=== PATIENT | male | born 1945 | race Caucasian/White ===

== ENCOUNTER 2017-04-28 09:15 | Outpatient (CLI) | payer MEDICARE, OTHER ==
[2017-04-28 11:15] LABS: Anion Gap 12 mmol/L (10-20); BUN (Urea Nitrogen) 16 mg/dL (8.4-25.7); Calc. Creatinine Clearance 0 mL/min (70-130); Carbon Dioxide 25 mmol/L (23-31); Chloride 109 mmol/L (98-107); Estimated GFR-MDRD 73
[2017-04-28 11:19] LABS: Hematocrit 45.4 % (42.0-52.0); Mean Platelet Volume 7.1 fL (7.4-10.4); White Blood Cell (WBC) Count 9.1 thou/uL (4.8-10.8)
[2017-04-28 11:21] LABS: PTT 27.4 SEC (22.9-36.1); Prothrombin Time 13.2 SEC (12.0-14.7)
--- NOTE | 2017-04-28 11:36 | RAD ---
ABDOMEN ONE VIEW: History: Stones. Abdomen pain. Comparison: IVP, 03-09-17. FINDINGS: Visualized bowel gas pattern is nonspecific. Phleboliths and other vascular calcifications project ov er the pelvis. Lobular calcifications overlying the left renal shadow are unchanged in appearance and positioning from the prior exam. There are degenerative changes of the lumbar spine. IMPRESSION: Left renal calculi appear stable. POS: [facility]
[2017-04-28 11:47] LABS: Bilirubin Negative (Negative); Blood, Urine Trace (Negative); Glucose, Urine (Dipstick) Negative (Negative); Ketone, Urine Trace mg/dL (Negative); Nitrite Negative (Negative); Protein, Urine (Dipstick) Negative (Neg-Trace)
[2017-04-28 11:49] LABS: Bacteria/HPF Rare-Few HPF (None Seen); Hyaline Casts/LPF 0-3 HYALINE CAST LPF (0-3 Hyaline); Squamous Epithelial None Seen HPF (0-3); WBC/HPF 21-50 HPF (0-3)
--- NOTE | 2017-04-28 14:22 | EKG ---
Test Reason : Blood Pressure : / mmHG Vent. Rate : 063 BPM Atrial Rate : 063 BPM P-R Int : 170 ms QRS Dur : 090 ms QT Int : 384 ms P-R-T Axes : 044 071 050 degrees QTc Int : 392 ms Normal sinus rhythm with sinus arrhythmia Cannot rule out Anterior infarct , age undetermined (PARWP) Abnormal ECG No previous ECGs available Confirmed by DR. Shalini LOPEZ ([id number]) on 04/28/2017 2:21:29 PM Referred By: BLANCA Confirmed By:DR. Shalini LOPEZ
== END 2017-04-28 09:16 | disposition home or self-care (01) ==
LOC: LABBT 09:15
PROVIDERS: ATTEND Urology
DX: Z01.818 Encounter for other preprocedural examination (principal); N20.0 Calculus of kidney
CPT/HCPCS: 74000; 80048; 81001; 85027; 85610; 85730; 87077; 87086; 93005; 93010

== ENCOUNTER 2017-05-25 05:47 | Day surgery (SDC) | payer MEDICARE, OTHER ==
[2017-04-28 09:45] VITALS: BMI 31.9
[2017-05-25] MEDS ORDERED: Iothalamate Meglumine 60% 50 ML VIAL FS ONE (06:45)
[2017-05-25] MEDS ORDERED: Fentanyl 100 MCG/2 ML VIAL ONE ×2 (06:49→10:20)
[2017-05-25 06:55] LABS: PTT 26.8 SEC (22.9-36.1); Prothrombin Time 13.6 SEC (12.0-14.7)
[2017-05-25 07:01] LABS: Anion Gap 17 mmol/L (10-20); BUN (Urea Nitrogen) 17 mg/dL (8.4-25.7); Calc. Creatinine Clearance 86 mL/min (70-130); Calcium 9.7 mg/dL (7.8-10.44); Carbon Dioxide 18 mmol/L (23-31); Chloride 108 mmol/L (98-107); Estimated GFR-MDRD 71; Glucose 127 mg/dL (83-110); Potassium 4.6 mmol/L (3.5-5.1); Sodium 138 mmol/L (136-145)
[2017-05-25 07:11] LABS: #Basophils 0.1 thou/uL (0.0-0.2); #Eosinphils 0.4 thou/uL (0.0-0.7); #Neutrophils 6.7 thou/uL (1.40-6.50); %Basophils 0.5 % (0.0-1.0); %Eosinophils 3.1 % (0.0-10.0); %Lymphocytes 32.7 % (21.0-51.0); %Monocytes 8.2 % (0.0-10.0); %Neutrophils 55.5 % (42.0-75.0); Hemoglobin 15.3 g/dL (14.0-18.0); Mean Corpuscular HGB CONC 34.9 g/dL (32.0-36.0); Mean Corpuscular Hemoglobin 33.6 pg (27.0-31.0); Mean Corpuscular Volume 96.2 fl (80.0-94.0); Mean Platelet Volume 6.9 fL (7.4-10.4); Platelet Count 127 thou/uL (130-400); RBC Distribution Width 11.8 % (11.5-14.5); Red Blood Cell (RBC) Count 4.55 mill/uL (4.70-6.10); White Blood Cell (WBC) Count 12.1 thou/uL (4.8-10.8)
[2017-05-25] MEDS ORDERED: Levofloxacin 500 mg/D5W 100 ml Premix Bag ONE (07:15)
--- NOTE | 2017-05-25 08:34 | RAD ---
ABDOMEN ONE VIEW: History: Renal stones. Pre op. Comparison: 04-28-17 FINDINGS: Visualized bowel gas pattern is nonspecific. Lobulated calcifications projecting over the left renal shadow are unchanged in appearance from the previous study. Phleboliths project over the pelvis. IMPRESSION: Left renal calculi appear stable. POS: [facility]
--- NOTE | 2017-05-25 09:32 | RAD ---
LEFT RETROGRADE URETEROGRAM INTRAOPERATIVE FLUOROSCOPY: History: Renal stones. FINDINGS/IMPRESSION: Intraoperative fluoroscopy is provided for Dr. Aldrich for retrograde ureterogram. Spot fluorosco pic images show catheterization and opacification of a nondilated left renal collecting system. Filli ng defects correlate with left renal stones. Final image shows the upper portion of a left ureteral s tent. POS: [facility]
[2017-05-25] MEDS ORDERED: Phenazopyridine HCl 97.5 MG TABLET ONE (09:48)
--- NOTE | 2017-05-25 10:53 | OP ---
DATE OF PROCEDURE: 05/25/2017 PREOPERATIVE DIAGNOSES: 1. A 72-year-old male with history of recurrent urolithiasis: Current stone burden in the left upper pole 1.5 cm x 6 mm, 7 x 5 mm left lower pole stone, right mid pole punctate renal calculi. 2. History of right 2.4 cm mildly enhancing renal mass on surveillance, followed by MD Guerar. 3. History of benign prostatic hypertrophy. 4. History of hematuria workup, previous workup at [facility] by Dr. Lewis , negative for bladder pathology. POSTOPERATIVE DIAGNOSES: 1. A 72-year-old male with history of recurrent urolithiasis: Current stone burden in the left upper pole 1.5 cm x 6 mm, 7 x 5 mm left lower pole stone, right mid pole punctate renal calculi. 2. History of right 2.4 cm mildly enhancing renal mass on surveillance, followed by MD Guerra. 3. History of benign prostatic hypertrophy. 4. History of hematuria workup, previous workup at [facility] by Dr. Lewis , negative for bladder pathology. PROCEDURE: Cystoscopy, left retrograde, 6 x 22 double-J ureteral stent placement with distal tail in situ, balloon dilation of the left distal intramural ureter, flexible ureteroscopy, pyeloscopy, laser lithotripsy, basket extraction of stone fragments, retrograde pyelogram. SURGEON: Brenda Aldrich D.O. ANESTHESIA: General. COMPLICATIONS: None apparent. DISPOSITION: To the recovery room in stable condition. SPECIMEN: Stone fragments for chemical analysis. INTRAOPERATIVE FINDINGS: 1. Nonobstructing wide caliber bulbar stricture now warranting treatment. 2. Moderate BPH with no significant intravesical median lobe, high median bar noted. 3. UOs approximately 3-4 mm from the bladder neck. 4. Large left upper pole renal stone. 5. Left lower pole stone moiety, papilla-based, not amendable to treatment at this time. INDICATIONS FOR THE PROCEDURE AND HISTORY: Mr. Ortiz is a 72-year-old male, self-referred for a second opinion, patient previously underwent evaluation by Dr. Lewis at [facility]. CT IVP cystoscopy performed. He was found to have BPH, no bladder lesions were found. He is on surveillance for right renal mass, which the patient prefers to be followed at [place] regarding this and has been for quite some time on surveillance with no surgical intervention, he presented for evaluation of left renal lithiasis. 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 I have informed the patient regarding treatment options of ESWL, ureteroscopy, percutaneous nephrolithotomy. PCNL was deemed somewhat difficult to access given the upper pole infundibular angle , I did not recommend ESWL, as his stone is quite dense large, ureteroscopy and laser lithotripsy was reviewed. Risks and complications of the procedure was reviewed with patient in detail including, but not limited to: Bleeding, pain, infection, injury to adjacent organs, urosepsis, ureteral renal injury, likely secondary procedure given large stone burden. All questions were answered to his satisfaction and he desired to proceed without reservation. DESCRIPTION OF THE PROCEDURE: After an informed consent was signed, the patient was taken to the operating room, placed in a dorsal lithotomy position with the genital area prepped and draped in the usual surgical sterile fashion. A 21-Jamaican cystoscope was utilized for cystoscopy which demonstrated nonobstructing bulbar stricture, now warranting treatment. Prostatic urethra demonstrated bilobar hyperplasia with a high median bar moderately obstructing. Bladder was entered and the UOs were identified in normal orthotopic position approximately 3-4 mm from the bladder neck. There was no evidence of bladder lesion. At this time, an open-ended catheter was utilized and a 0.35 sensor wire was placed into the left upper pole without difficulty. Retrograde pyelogram was initially performed demonstrating no evidence of hydronephrosis or hydroureter. A large stone burden is seen in the left upper pole and a left lower pole consistent with prior CT. At this time, with the wire in situ, using [employer] 4 cm 12-Jamaican balloon dilator, we dilated the intramural ureter. Subsequently, we passed a 10-Jamaican dual-lumen access sheath to the level of the proximal ureter and a second working wire, a 0.35 Super Stiff was placed. The dual-lumen access sheath was then removed and an 11 /13-Jamaican x 46 cm navigator was passed through the working Super Stiff wire to the level of the proximal ureter. The flexible ureteroscope was then advanced over the working wire. The stone was directly visualized which demonstrating a large hard stone burden. The left upper pole stone was fragmented into multiple tiny pieces using 365 micron laser fiber. We tried to basket extract some of these sediments and tiny fragments were sent for chemical analysis. Much of the stone debris was fragmented into dust-like debris, too small to basket extract. At the end of the procedure, were remained were tiny fragments which he would most likely pass as they are dust-like caliber. I then surveyed his left lower pole. There was an acute infundibular angle. This stone is papilla-based, not amendable to treatment at this time. The ureter was then surveyed, which demonstrated no evidence of ureteral mucosa trauma or stone debris. The navigator was then subsequently removed. A 6 x 26 stent was initially placed based on his high; however, this is much to redundant, a 6 x 22 double-J ureteral stent which is appropriate length for this patient. Proper placement was confirmed on fluoroscopy and on direct visualization. Bladder was completely emptied. He will be discharged with Buna 5/325 #50, ciprofloxacin for 7 days, Flomax to continue, Colace, AZO p.r.n. He is to obtain a KUB one hour prior to the appointment, scheduled to see me 06/09/2016 with KUB one hour prior, if no gross evidence of ureteral stone debris, we will perform cysto stent pull under local. LOS
[2017-05-25] MEDS ORDERED: HYDROcodone/Acetaminophen 5/325 mg Tablet ONE (11:14)
== END 2017-05-25 11:43 | disposition home or self-care (01) ==
LOC: SDC 05:47
PROVIDERS: ATTEND Urology
PROC: 0TF78ZZ Fragmentation in Left Ureter, Via Natural or Artificial Opening Endoscopic (ICD-10-PCS; principal; 2017-05-25)
PROC: 0T778DZ Dilation of Left Ureter with Intraluminal Device, Via Natural or Artificial Opening Endoscopic (ICD-10-PCS; 2017-05-25)
DX: N20.0 Calculus of kidney (principal); N40.0 Benign prostatic hyperplasia without lower urinary tract symptoms; I10 Essential (primary) hypertension; E78.00 Pure hypercholesterolemia, unspecified; M06.9 Rheumatoid arthritis, unspecified; E03.9 Hypothyroidism, unspecified; Z87.442 Personal history of urinary calculi; Z98.890 Other specified postprocedural states; Z80.1 Family history of malignant neoplasm of trachea, bronchus and lung; Z79.899 Other long term (current) drug therapy; Z79.82 Long term (current) use of aspirin; Z79.2 Long term (current) use of antibiotics
CPT/HCPCS: 52344; 52356; 74018; 74420; 80048; 82365; 85025; 85610; 85730; 88300; 96374; C1758; C1769; J1956; J3010; J3370; Q9961

== ENCOUNTER 2017-06-09 07:12 | Outpatient (CLI) | payer MEDICARE, OTHER ==
--- NOTE | 2017-06-09 09:08 | RAD ---
AP SUPINE ABDOMINAL RADIOGRAPH: DATE: 06/09/17. HISTORY: Renal stone. COMPARISON: 05/25/17. FINDINGS: The calcification overlying the inferior pole of the left renal shadow is again seen consistent with a renal calculus. Previously noted calculus overlying the superior pole left renal shadow is not vis ualized on this exam which may be related to interval treatment. A double-pigtail left ureteral sten t is now noted in place with the proximal portion overlying the superior pole left renal shadow and t he distal portion overlying the expected location of the urinary bladder. Right renal shadow is hazel sly obscured by bowel gas. No additional suspicious calcifications are seen. Phleboliths overlie th e pelvis. The bowel gas pattern is nonspecific. No other interval change. IMPRESSION: 1. Left nephrolithiasis, but the larger calculus burden overlying the superior pole left kidney is n ot seen which may be related to interval treatment. 2. Left ureteral stent noted in place. POS: [facility]
== END 2017-06-09 07:13 | disposition home or self-care (01) ==
LOC: RAD 07:12
PROVIDERS: ATTEND Urology
DX: N20.0 Calculus of kidney (principal); Z96.0 Presence of urogenital implants
CPT/HCPCS: 74018; 87086

== ENCOUNTER 2017-09-29 12:24 | Outpatient (CLI) | payer MEDICARE, OTHER | END 2017-09-29 12:25 | disposition home or self-care (01) | LOC: BICULT 12:24 | PROVIDERS: ATTEND Urology | DX: N20.0 Calculus of kidney (principal); N28.89 Other specified disorders of kidney and ureter | CPT/HCPCS: 74018; 76770 ==

== ENCOUNTER 2018-05-24 09:05 | Outpatient (CLI) | payer MEDICARE, OTHER ==
[2018-05-24 09:53] LABS: Anion Gap 14 mmol/L (10-20); BUN (Urea Nitrogen) 14 mg/dL (8.4-25.7); Calc. Creatinine Clearance 0 mL/min (70-130); Calcium 9.7 mg/dL (7.8-10.44); Carbon Dioxide 25 mmol/L (23-31); Chloride 107 mmol/L (98-107); Estimated GFR-MDRD Greater than 90; Glucose 120 mg/dL (83-110); Potassium 4.6 mmol/L (3.5-5.1); Sodium 141 mmol/L (136-145)
[2018-05-24 10:06] LABS: Bilirubin Negative (Negative); Blood, Urine Trace (Negative); Clarity CLEAR (Clear); Glucose, Urine (Dipstick) Negative (Negative); Leukocyte Small (Negative); Nitrite Negative (Negative); Protein, Urine (Dipstick) Negative (Neg-Trace); Specific Gravity, Urine 1.021 (1.002-1.036); Urobilinogen 0.2 mg/dL (0.2-1.0); pH, Urine 6.5 (5.0-9.0)
[2018-05-24 10:11] LABS: Bacteria/HPF None Seen HPF (None Seen); Hyaline Casts/LPF 0-3 HYALINE CAST LPF (0-3 Hyaline); Squamous Epithelial 0-3 HPF (0-3)
--- NOTE | 2018-05-24 11:42 | CT ---
CT ABDOMEN AND PELVIS WITHOUT CONTRAST: Date: 05/24/18 PROVIDED CLINICAL HISTORY: Renal calculus. FINDINGS: Comparison made with CT examination dated 05/06/14. The visualized lung bases are free of significant opacity. Multiple cysts are again seen involving the liver. There is a 1.8 cm hypodense structure involving th e posterior aspect of the right kidney with rim calcification that appears slightly larger with respe ct to the prior examination (1.8 cm in greatest transverse dimension on the current study as compared to 1.4 cm on the prior). There is a 6.0 mm nonobstructing inferior pole left renal calculus. There are several punctate nonobs tructing right renal calculi, seen to best advantage on the coronal images. No additional urinary tra ct calculi are evident. There is no evidence for hydronephrosis. Nonspecific bilateral perinephric fa t stranding. Conspicuous diffuse colonic diverticulosis without CT evidence for diverticulitis. Vascular calcifications noted involving the abdominal aorta and its branches. The osseous structures demonstrate no concerning osteoblastic or osteolytic lesions. Degenerative mikal nges are seen involving the spine. Stable small fat-containing paraumbilical hernia. IMPRESSION: 1. Nonobstructing bilateral nephrolithiasis. 2. Incompletely characterized peripherally calcified right renal hypodensity, minimally enlarged wit h respect to the prior study. 3. Other chronic findings as above. POS: [facility]
== END 2018-05-24 09:06 | disposition home or self-care (01) ==
LOC: CT 09:05
PROVIDERS: ATTEND Urology
DX: N20.0 Calculus of kidney (principal); Z87.448 Personal history of other diseases of urinary system; N28.89 Other specified disorders of kidney and ureter; K76.89 Other specified diseases of liver; K57.30 Diverticulosis of large intestine without perforation or abscess without bleeding; M47.9 Spondylosis, unspecified; K42.9 Umbilical hernia without obstruction or gangrene; I70.90 Unspecified atherosclerosis
CPT/HCPCS: 74176; 80048; 81001; 87077; 87086; 87186

== ENCOUNTER 2018-09-13 10:52 | Outpatient (CLI) | payer MEDICARE, OTHER ==
[2018-09-13 12:27] LABS: #Basophils 0.1 thou/uL (0.0-0.2); #Eosinphils 0.4 thou/uL (0.0-0.7); #Lymphocytes 3.8 thou/uL (1.20-3.40); #Monocytes 0.7 thou/uL (0.11-0.59); #Neutrophils 4.4 thou/uL (1.40-6.50); %Basophils 0.9 % (0.0-1.0); %Eosinophils 4.1 % (0.0-10.0); %Lymphocytes 40.8 % (21.0-51.0); %Monocytes 7.4 % (0.0-10.0); %Neutrophils 46.9 % (42.0-75.0); Hemoglobin 14.8 g/dL (14.0-18.0); Mean Corpuscular HGB CONC 34.2 g/dL (32.0-36.0); Mean Corpuscular Volume 96.5 fL (78.0-98.0); Mean Platelet Volume 7.3 fL (7.4-10.4); Platelet Count 127 thou/uL (130-400); RBC Distribution Width 11.9 % (11.5-14.5); Red Blood Cell (RBC) Count 4.48 mill/uL (4.70-6.10); White Blood Cell (WBC) Count 9.4 thou/uL (4.8-10.8)
[2018-09-13 12:48] LABS: Anion Gap 10 mmol/L (10-20); BUN (Urea Nitrogen) 14 mg/dL (8.4-25.7); Calc. Creatinine Clearance 0 mL/min (70-130); Calcium 9.7 mg/dL (7.8-10.44); Carbon Dioxide 28 mmol/L (23-31); Chloride 106 mmol/L (98-107); Estimated GFR-MDRD 84; Glucose 100 mg/dL (83-110); Potassium 4.3 mmol/L (3.5-5.1); Sodium 140 mmol/L (136-145)
== END 2018-09-13 10:53 | disposition home or self-care (01) ==
LOC: LABBT 10:52
PROVIDERS: ATTEND Surgery
DX: Z01.818 Encounter for other preprocedural examination (principal); K42.9 Umbilical hernia without obstruction or gangrene
CPT/HCPCS: 80048; 85025; 93005; 93010

== ENCOUNTER 2018-09-19 06:53 | Day surgery (SDC) | payer MEDICARE, OTHER ==
[2018-09-13 11:02] VITALS: BMI 31.8
[2018-09-19] MEDS ORDERED: Bupivacaine/Epinephrine 0.25% 30 ML VIAL ONE (09:01)
[2018-09-19] MEDS ORDERED: Famotidine/PF 20 mg/2ml Vial ONE (09:05)
[2018-09-19] MEDS ORDERED: Fentanyl 100 MCG/2 ML VIAL ONE (09:05)
--- NOTE | 2018-09-19 13:54 | OP ---
DATE OF PROCEDURE: 09/19/2018 PREOPERATIVE DIAGNOSIS: Umbilical hernia. POSTOPERATIVE DIAGNOSIS: Umbilical hernia. PROCEDURE PERFORMED: Umbilical hernia repair with mesh, Ventralex ST, small, 4 cm. ANESTHESIA: General. ESTIMATED BLOOD LOSS: None. COMPLICATIONS: None. SPECIMEN: None. FINDINGS: Umbilical hernia. DESCRIPTION OF PROCEDURE: The patient was taken to the operating room and laid supine on the operating room table. After general anesthetic was obtained, the abdomen was shaved, prepped, and draped in a sterile fashion. A curved incision was made below the umbilicus. Cautery was dissected down to and score the fascia. The umbilical stalk was amputated exposing the fascial defect. The preperitoneal space was bluntly dissected from the back side of the fascia and the preperitoneal space. The Ventralex ST 4 cm mesh was brought into the sterile field. The underlay was placed in this area. The tails were used to pull it up flat against the posterior abdominal wall. The tails were sewn via U-stitch of permanent braided suture laterally. The tails were cut at the level of the fascia. The fascia was closed loosely over the mesh. The wound was irrigated. Local anesthetic was applied. The umbilical stalk was tacked back down using 3-0 Vicryl. The skin was closed using 3-0 Vicryl, 4-0 Monocryl, and Dermabond. The patient was sent to Recovery in stable condition. All instrument counts, needle counts, and lap counts were correct. Job ID: [id number]
[2018-09-19] MEDS ORDERED: Metoclopramide HCl 10 MG/2 ML VIAL ONE (14:15)
[2018-09-19] MEDS ORDERED: Rocuronium Bromide 10 MG/ML (10ML VIAL) ONE (14:15)
[2018-09-19] MEDS ORDERED: Ondansetron PF 4 MG/2 ML Vial ONE (14:15)
[2018-09-19] MEDS ORDERED: Glycopyrrolate 0.2 MG/ML 5 ML SYRINGE ONE (14:15)
[2018-09-19] MEDS ORDERED: PROPOFOL 200 MG/20 ML VIAL ONE (14:15)
[2018-09-19] MEDS ORDERED: Lidocaine 1% PF 5 ML VIAL ONE (14:15)
[2018-09-19] MEDS ORDERED: Dexamethasone 20 MG/5 ML VIAL ONE (14:15)
[2018-09-19] MEDS ORDERED: Ketorolac Tromethamine 30 MG/ML VIAL ONE (14:15)
== END 2018-09-19 11:47 | disposition home or self-care (01) ==
LOC: SDC 06:53
PROVIDERS: ATTEND Surgery
PROC: 0WUF0JZ Supplement Abdominal Wall with Synthetic Substitute, Open Approach (ICD-10-PCS; principal; 2018-09-19)
DX: K42.9 Umbilical hernia without obstruction or gangrene (principal); I10 Essential (primary) hypertension; E78.00 Pure hypercholesterolemia, unspecified; M06.9 Rheumatoid arthritis, unspecified; E03.9 Hypothyroidism, unspecified; Z79.82 Long term (current) use of aspirin; Z79.899 Other long term (current) drug therapy; Z88.2 Allergy status to sulfonamides
CPT/HCPCS: J0131; J0690; J3010; S0028

== ENCOUNTER 2019-04-30 09:35 | Outpatient (CLI) | payer MEDICARE, OTHER ==
--- NOTE | 2019-04-30 10:34 | RAD ---
KUB: 04/30/2019 COMPARISON: 06/09/2017 HISTORY: Renal stone disease FINDINGS: The double-J ureteral stent present on the left on the prior examination has been removed. Supine imaging is provided, limiting assessment for free intraperitoneal air and small bowel obstruction. Calcifications in the pelvis suggest vascular calcification. There is a calcification wi thin the left abdomen just superior to the left iliac crest measuring 6-7 mm, suggesting a stable renal calculus within the lower pole of the left kidney. IMPRESSION: Findings suggesting a stable 6-7 mm stone lower pole of left kidney.
--- NOTE | 2019-04-30 10:35 | ULT ---
US Renal Bilateral STANDARD: 04/30/2019 12:00 AM CLINICAL HISTORY: History of kidney stones. STUDY: Renal ultrasound COMPARISON: None. FINDINGS: Right kidney: Echogenicity: Normal. Masses/cysts: There appears to be an echogenic mass in the midportion measuring 3.3 cm in greatest d imension. Hydronephrosis: None. Calcifications: 2 scattered echogenic foci may represent calcifications measuring up to 1.2 cm in siz e. Length: 11.1 cm Left kidney: Echogenicity: Normal. Masses/cysts: 1.5 cm cyst Hydronephrosis: None. Calcifications: 1.4 cm echogenic focus may represent a calcification. Length: 13.0 cm Limited visualization of the urinary bladder is unremarkable. IMPRESSION: 1. Echogenic foci in both kidneys may represent nonobstructing calcifications 2. Possible right renal mass. A CT of the abdomen per renal mass protocol is recommended for further evaluation.
== END 2019-04-30 09:36 | disposition home or self-care (01) ==
LOC: ULT 09:35
PROVIDERS: ATTEND Urology
DX: N20.0 Calculus of kidney (principal)
CPT/HCPCS: 74018; 76770

== ENCOUNTER 2020-11-11 13:00 | Outpatient (CLI) | payer MEDICARE, OTHER ==
[~2020-11-11 13:00] MED LIST: Iopamidol-370 76% 500 ML 1 ML ONE
== END 2020-11-11 13:01 | disposition home or self-care (01) ==
LOC: BICCT 13:00
PROVIDERS: ATTEND Urology
DX: N20.0 Calculus of kidney (principal); N28.89 Other specified disorders of kidney and ureter; N28.1 Cyst of kidney, acquired; J98.11 Atelectasis; K57.30 Diverticulosis of large intestine without perforation or abscess without bleeding; K76.89 Other specified diseases of liver; I70.90 Unspecified atherosclerosis
CPT/HCPCS: 74178; 82565; Q9967

== ENCOUNTER 2022-08-10 12:59 | Outpatient (CLI) | payer MEDICARE, OTHER | END 2022-08-10 13:00 | disposition home or self-care (01) | LOC: BICCT 12:59 | PROVIDERS: ATTEND Psychiatry & Neurology Neurology | DX: R25.1 Tremor, unspecified (principal); I67.89 Other cerebrovascular disease; G93.89 Other specified disorders of brain | CPT/HCPCS: 70450 ==